=== PATIENT | female | born 1990 | race Hispanic/Latino ===

== ENCOUNTER 2018-07-20 21:57 | Emergency (ER) | payer MEDICAID ==
[2018-07-20] MEDS ORDERED: DEXAMETHASONE SOD PHOSPHATE 10MG/ML 1ML VIAL ONE (23:18)
[2018-07-20] MEDS ORDERED: DiphenhydrAMINE HCL 50 MG/ML VIAL ONE (23:18)
[2018-07-20] MEDS ORDERED: SODIUM CHLORIDE 0.9% 1000ML 1,000 ML IV ONE (23:18)
[2018-07-20] MEDS ORDERED: PROCHLORPERAZINE EDISYLATE 10 MG/2 ML VIAL ONE (23:19)
[2018-07-20 23:43] LABS: APPEARANCE,URINE Clear (CLEAR); BILIRUBIN,URINE Negative (NEGATIVE); COLOR,URINE Yellow (YELLOW); GLUCOSE, URINE (UA) Negative (NEGATIVE); KETONES,URINE Negative (NEGATIVE); LEUKOCYTE ESTERASE ,URINE Small (NEGATIVE); NITRATE,URINE Negative (NEGATIVE); OCCULT BLOOD,URINE Negative (NEGATIVE); PH,URINE 7.5 (5.0-8.0); PROTEIN,URINE Negative (NEGATIVE); UROBILINOGEN,URINE 0.2 mg/dL (0.2-1.0)
[2018-07-20 23:45] LABS: HCG,QUAL RESULT NEGATIVE (NEGATIVE)
[2018-07-20] MEDS ORDERED: CLINDAMYCIN 600 MG/D5% WATER 50 ML IV ONE (23:47)
[2018-07-20 23:52] LABS: BACTERIA,URINE None Seen /HPF (None Seen); RBC,URINE None Seen /HPF (0-1); SQUAMOUS EPITHELIAL CELL,UR Moderate /HPF (0-2); WBC,URINE None Seen /HPF (0-1)
[2018-07-20 23:59] LABS: CREATININE 0.9 mg/dL (0.5-1.5); POTASSIUM 3.7 mmol/L (3.5-5.1)
[2018-07-21 00:01] LABS: BASOPHILS % (AUTO) 0.3 % (0.0-5.0); EOSINOPHILS % (AUTO) 0.1 % (0.0-8.0); HEMATOCRIT 35.1 % (36-48); LYMPHOCYTES % (AUTO) 8.3 % (21.0-51.0); MEAN CORPUSCULAR HEMOGLOBIN 27.8 pg (27.0-33.0); MEAN CORPUSCULAR HGB CONC 32.6 g/dL (32.0-36.0); MEAN CORPUSCULAR VOLUME 85.3 fL (79-99); MONOCYTES % (AUTO) 7.4 % (3.0-13.0); NEUTROPHILS % (AUTO) 83.9 % (40.0-77.0); PLATELET COUNT (AUTO) 178 K/uL (130-400); RED BLOOD CELL COUNT(AUTO) 4.12 MIL/uL (4.00-5.50); RED CELL DISTRIBUTION WIDTH 14.4 % (11.0-15.5); WHITE BLOOD COUNT (AUTO) 14.7 K/uL (4.8-10.8)
[2018-07-21 00:04] LABS: ALBUMIN 3.8 g/dL (3.5-5.0); BILIRUBIN,TOTAL 0.6 mg/dL (0.2-1.0); TOTAL PROTEIN, SERUM 7.3 g/dL (6.0-8.3)
== END 2018-07-21 01:23 | disposition left against medical advice (07) ==
LOC: EDH 21:57
DX: N61.0 Mastitis without abscess (principal); N63.0 Unspecified lump in unspecified breast; M79.7 Fibromyalgia; Z85.528 Personal history of other malignant neoplasm of kidney; Z98.51 Tubal ligation status; Z98.890 Other specified postprocedural states
CPT/HCPCS: 36415 ×2; 76604; 80053; 81001; 81025; 83605; 85025; 87040 ×2; 96365; 96375; 99284; J0780; J1100; J1200; J3490; J7030

== ENCOUNTER 2018-07-22 20:07 | Inpatient (IN) | payer MEDICAID ==
[~2018-07-22] VITALS: Ht 167.6 cm; Wt 59.4 kg
[2018-07-22 20:37] LABS: BASOPHILS % (AUTO) 0.6 % (0.0-5.0); EOSINOPHILS % (AUTO) 0.4 % (0.0-8.0); HEMATOCRIT 35.5 % (36-48); LYMPHOCYTES % (AUTO) 25.4 % (21.0-51.0); MEAN CORPUSCULAR HEMOGLOBIN 27.8 pg (27.0-33.0); MEAN CORPUSCULAR HGB CONC 32.6 g/dL (32.0-36.0); MEAN CORPUSCULAR VOLUME 85.5 fL (79-99); MONOCYTES % (AUTO) 7.3 % (3.0-13.0); NEUTROPHILS % (AUTO) 66.3 % (40.0-77.0); PLATELET COUNT (AUTO) 213 K/uL (130-400); RED BLOOD CELL COUNT(AUTO) 4.15 MIL/uL (4.00-5.50); RED CELL DISTRIBUTION WIDTH 14.2 % (11.0-15.5); WHITE BLOOD COUNT (AUTO) 10.1 K/uL (4.8-10.8)
[2018-07-22] MEDS ORDERED: SODIUM CHLORIDE 0.9% 1000ML 1,000 ML IV ONE (20:43)
[2018-07-22] MEDS ORDERED: ONDANSETRON HCL 4 MG/2 ML VIAL ONE (20:43)
[2018-07-22 20:45] LABS: APPEARANCE,URINE Turbid (CLEAR); BILIRUBIN,URINE Negative (NEGATIVE); COLOR,URINE Yellow (YELLOW); GLUCOSE, URINE (UA) Negative (NEGATIVE); KETONES,URINE Trace mg/dL (NEGATIVE); LEUKOCYTE ESTERASE ,URINE Moderate (NEGATIVE); NITRATE,URINE Negative (NEGATIVE); OCCULT BLOOD,URINE Negative (NEGATIVE); PROTEIN,URINE POS 1+ (NEGATIVE)
[2018-07-22] MEDS ORDERED: MORPHINE SULFATE 4 MG/1ML SYG ONE ×3 (20:46→22:28)
[2018-07-22 20:47] LABS: HCG,QUAL RESULT NEGATIVE (NEGATIVE)
[2018-07-22 20:57] LABS: CREATININE 0.9 mg/dL (0.5-1.5); POTASSIUM 4.2 mmol/L (3.5-5.1)
[2018-07-22 21:02] LABS: ALBUMIN 3.8 g/dL (3.5-5.0); BILIRUBIN,TOTAL 0.3 mg/dL (0.2-1.0); TOTAL PROTEIN, SERUM 7.4 g/dL (6.0-8.3)
[2018-07-22 21:25] LABS: BACTERIA,URINE Many /HPF (None Seen); RBC,URINE None Seen /HPF (0-1); SQUAMOUS EPITHELIAL CELL,UR 30-50 /HPF (0-2); WBC,URINE 26-50 /HPF (0-1)
[2018-07-22 21:40] LABS: AMPHET/METH SCREEN,URINE NEGATIVE (NEGATIVE); BARBITURATE SCREEN, URINE NEGATIVE (NEGATIVE); BENZODIAZEPINES SCREEN,URINE NEGATIVE (NEGATIVE); CANNABINOID SCREEN,URINE POSITIVE (NEGATIVE); COCAINE SCREEN,URINE NEGATIVE (NEGATIVE); OPIATE SCREEN,URINE POSITIVE (NEGATIVE); PHENCYCLIDINE SCREEN,URINE NEGATIVE (NEGATIVE)
[2018-07-22] MEDS ORDERED: FENTANYL CITRATE PF 50 MCG/1 ML 2ML VIAL ONE (22:57)
[2018-07-22] MEDS ORDERED: SODIUM CHLORIDE 0.9% 1000ML 1,000 ML IV SCH (23:29)
[2018-07-22] MEDS ORDERED: LORAZEPAM 2 MG/ML 1 ML VIAL IVP PRN (23:30)
[2018-07-22] MEDS ORDERED: CEFTRIAXONE SODIUM 1 GM IVP SCH (23:30)
[2018-07-22] MEDS ORDERED: ONDANSETRON HCL 4 MG/2 ML VIAL IV PRN (23:30)
[2018-07-22] MEDS ORDERED: MORPHINE SULFATE 4 MG/1ML SYG IV PRN (23:30)
[2018-07-22] MEDS ORDERED: ACETAMINOPHEN 325 MG TAB PO PRN (23:30)
[2018-07-22] MEDS ORDERED: CEFTRIAXONE SODIUM 1 GM ONE (23:37)
[2018-07-23] VITALS (24 sets, daily range): BP systolic 110–135; BP diastolic 48–81
[2018-07-23] MEDS ORDERED: SODIUM CHLORIDE 0.9% 1000ML 1,000 ML IV ONE ×2 (00:47→10:51)
[2018-07-23] MEDS ORDERED: LORAZEPAM 2 MG/ML 1 ML VIAL ONE (04:00)
[2018-07-23] MEDS ORDERED: FAMOTIDINE/PF 20 MG/2 ML VIAL IV ONE (08:15)
[2018-07-23] MEDS: FAMOTIDINE/PF 20 MG/2 ML VIAL IV SCH ×2 (09:00→20:53)
[2018-07-23] MEDS ORDERED: ZOSYN 3.375GM+NS 50ML 50 ML IV SCH (10:30)
[2018-07-23] MEDS ORDERED: MORPHINE SULFATE 4 MG/1ML SYG ONE (10:51)
[2018-07-23] MEDS ORDERED: ZOSYN 3.375GM+NS 50ML 50 ML IV ONE (10:51)
[2018-07-23] MEDS ORDERED: SODIUM CHLORIDE 0.9% 50 ML IV ONE (10:52)
[2018-07-23] MEDS ORDERED: CLIN150C10 PO (10:53)
[2018-07-23] MEDS ORDERED: ACETAMINOPHEN 325 MG TAB ONE (12:23)
[2018-07-23] MEDS ORDERED: LACTATED RINGERS 1000ML 1,000 ML IV ONE (13:14)
[2018-07-23] MEDS ORDERED: PROPOFOL 10 MG/ML 20ML VIAL IV ONE (13:33)
[2018-07-23] MEDS ORDERED: LIDOCAINE PF 2% 5ML ABBOJECT ONE (13:33)
[2018-07-23] MEDS ORDERED: MIDAZOLAM HCL 1 MG/ML 2ML VIAL ONE (13:33)
[2018-07-23] MEDS ORDERED: ROCURONIUM 10MG/1ML SYR 10 MG/ML ML ONE ×2 (13:37→14:11)
[2018-07-23] MEDS ORDERED: DEXAMETHASONE SOD PHOSPHATE 4 MG/ML 1ML VIAL ONE (13:37)
[2018-07-23] MEDS ORDERED: ONDANSETRON HCL 4 MG/2 ML VIAL ONE (13:37)
[2018-07-23] MEDS ORDERED: NEOSTIGMINE 5MG/5ML SYR IV ONE (13:37)
[2018-07-23] MEDS ORDERED: GLYCOPYRROLATE 1 MG/5 ML SYRINGE ONE (13:37)
[2018-07-23] MEDS ORDERED: LIDOCAINE HCL 4% LTA SOL 4 ML VIAL ONE (13:37)
[2018-07-23] MEDS ORDERED: FENTANYL CITRATE PF 50 MCG/1 ML 2ML VIAL ONE ×3 (13:38→15:48)
[2018-07-23] MEDS ORDERED: CEFOXITIN SODIUM 1 GM VIAL ONE (14:00)
[2018-07-23] MEDS ORDERED: PHENYLEPHRINE HCL 10 MG/ML 1ML VIAL IV ONE (14:21)
[2018-07-23] MEDS: LACTATED RINGERS 1000ML 1,000 ML IV SCH ×2 (15:21→20:55)
[2018-07-23] MEDS ORDERED: MEPERIDINE-PF 25 MG/ML SYG ONE ×2 (15:29→16:04)
[2018-07-23] MEDS ORDERED: CEFOXITIN SODIUM 1 GM VIAL IVP SCH (15:30)
[2018-07-23] MEDS: KETOROLAC TROMETHAMINE 30MG/ML IV SCH ×2 (15:30→20:54)
--- NOTE | 2018-07-23 16:45 | NUR ---
REPORT RECEIVED FROM CORNELIO, RN (PACU). PATIENT S/P EXPLORATORY LAP SIGMOID RESECTION WITH PRIMARY ANASTOMOSIS BY DR. LUZ. DRESSING TO ABD DRY AND INTACT. 16 FR GUZ[address] IN [address]ACE. MEFOXIN 1GM GIVEN AT 1403. PATIENT STABLE AT THIS TIME.
[2018-07-23] MEDS: CEFOXITIN SODIUM 1 GM VIAL IVP SCH (20:53)
[2018-07-23] MEDS: MORPHINE SULFATE 4 MG/1ML SYG IV PRN (20:54)
[2018-07-23] MEDS: ZOSYN 3.375GM+NS 50ML 50 ML IV SCH (22:46)
[2018-07-24] VITALS: BP 124/50
[2018-07-24] MEDS: MORPHINE SULFATE 4 MG/1ML SYG IV PRN ×4 (00:16→11:04)
[2018-07-24] MEDS: KETOROLAC TROMETHAMINE 30MG/ML IV SCH (03:30)
[2018-07-24] MEDS: CEFOXITIN SODIUM 1 GM VIAL IVP SCH ×3 (03:57→15:04)
[2018-07-24 04:00] VITALS: BP 140/73
[2018-07-24 05:11] LABS: BASOPHILS % (AUTO) 0.2 % (0.0-5.0); LYMPHOCYTES % (AUTO) 5.3 % (21.0-51.0); MEAN CORPUSCULAR HEMOGLOBIN 27.5 pg (27.0-33.0); MEAN CORPUSCULAR HGB CONC 32.2 g/dL (32.0-36.0); MEAN CORPUSCULAR VOLUME 85.5 fL (79-99); MONOCYTES % (AUTO) 5.3 % (3.0-13.0); NEUTROPHILS % (AUTO) 89.2 % (40.0-77.0); PLATELET COUNT (AUTO) 210 K/uL (130-400); RED BLOOD CELL COUNT(AUTO) 3.86 MIL/uL (4.00-5.50); RED CELL DISTRIBUTION WIDTH 13.7 % (11.0-15.5); WHITE BLOOD COUNT (AUTO) 14.9 K/uL (4.8-10.8)
[2018-07-24 05:32] LABS: CREATININE 1.1 mg/dL (0.5-1.5); POTASSIUM 4.3 mmol/L (3.5-5.1)
[2018-07-24] MEDS: ZOSYN 3.375GM+NS 50ML 50 ML IV SCH ×3 (05:53→21:47)
[2018-07-24 07:49] VITALS: BP 121/73
[2018-07-24] MEDS: FAMOTIDINE/PF 20 MG/2 ML VIAL IV SCH ×2 (08:08→21:47)
[2018-07-24] MEDS: LACTATED RINGERS 1000ML 1,000 ML IV SCH ×2 (09:09→21:49)
[2018-07-24] MEDS ORDERED: TRAMADOL HCL 50 MG TABLET PO PRN (09:30)
[2018-07-24] MEDS: ENOXAPARIN SODIUM 40 MG/0.4 ML SYRINGE SQ SCH (10:08)
[2018-07-24] MEDS: ONDANSETRON HCL 4 MG/2 ML VIAL IVP PRN (10:54)
[2018-07-24 11:00] VITALS: BP 124/82
[2018-07-24] MEDS: HYDROMORPHONE PCA 10 MG/50 ML 50 ML IV SCH (14:42)
[2018-07-24 16:00] VITALS: BP 117/68
--- NOTE | 2018-07-24 18:02 | NUR ---
CONSUELO LESLIE, AAOX [address], IN [place], POST OP, STATES LIVES W FAMILY, NOT ALWAYS VERY MOBILE, STAYS IN BED A LOT, NO DME, NO HH NO PROVIDER, PLAN IS HOME Addendum: 07/24/18 at 1803 by DICK HAMPTON RN CM Amended: Links added.
[2018-07-24 19:59] VITALS: BP 119/60
[2018-07-25] VITALS: BP 114/82
[2018-07-25 04:00] VITALS: BP 106/61
[2018-07-25 04:25] LABS: BASOPHILS % (AUTO) 0.2 % (0.0-5.0); EOSINOPHILS % (AUTO) 0.3 % (0.0-8.0); HEMATOCRIT 32.3 % (36-48); LYMPHOCYTES % (AUTO) 6.9 % (21.0-51.0); MEAN CORPUSCULAR HEMOGLOBIN 28.4 pg (27.0-33.0); MEAN CORPUSCULAR HGB CONC 33.4 g/dL (32.0-36.0); MEAN CORPUSCULAR VOLUME 85.1 fL (79-99); MONOCYTES % (AUTO) 6.4 % (3.0-13.0); NEUTROPHILS % (AUTO) 86.2 % (40.0-77.0); PLATELET COUNT (AUTO) 233 K/uL (130-400); RED BLOOD CELL COUNT(AUTO) 3.79 MIL/uL (4.00-5.50); RED CELL DISTRIBUTION WIDTH 13.9 % (11.0-15.5); WHITE BLOOD COUNT (AUTO) 11.8 K/uL (4.8-10.8)
[2018-07-25 04:35] LABS: CREATININE 0.9 mg/dL (0.5-1.5); POTASSIUM 4.2 mmol/L (3.5-5.1)
[2018-07-25] MEDS: ZOSYN 3.375GM+NS 50ML 50 ML IV SCH ×3 (06:16→19:38)
[2018-07-25 07:50] VITALS: BP 138/61
[2018-07-25] MEDS: FAMOTIDINE/PF 20 MG/2 ML VIAL IV SCH ×2 (08:06→19:38)
[2018-07-25] MEDS: ENOXAPARIN SODIUM 40 MG/0.4 ML SYRINGE SQ SCH (08:14)
[2018-07-25] MEDS: ONDANSETRON HCL 4 MG/2 ML VIAL IVP PRN (08:34)
[2018-07-25] MEDS ORDERED: NALOXONE HCL 0.4 MG/1 ML ML IVP PRN (11:00)
[2018-07-25] MEDS: SODIUM CHLORIDE 0.9% 1000ML 1,000 ML IV SCH (11:15)
[2018-07-25] MEDS: LACTATED RINGERS 1000ML 1,000 ML IV SCH (11:43)
[2018-07-25 11:45] VITALS: BP 121/71
--- NOTE | 2018-07-25 15:30 | NUR ---
Dailey catheter removed as ordered. Balloon completely deflated, no resistance felt upon removal, tip noted to be intact. Pt tolerated with minimal discomfort. Stat lock removed w/ alcohol, liat care provided. Instructed pt to call when ready to void. Call light and bedside table within easy reach.
[2018-07-25 16:00] VITALS: BP 109/58
[2018-07-25] MEDS ORDERED: METRONIDAZOLE 500MG/100ML BAG 100 ML ONE (19:22)
[2018-07-25 20:00] VITALS: BP 132/69
[2018-07-25] MEDS: METRONIDAZOLE 500MG/100ML BAG 100 ML IV SCH (21:34)
[2018-07-26] VITALS (7 sets, daily range): BP systolic 107–127; BP diastolic 56–77
[2018-07-26 04:12] LABS: BASOPHILS % (AUTO) 0.2 % (0.0-5.0); EOSINOPHILS % (AUTO) 0.4 % (0.0-8.0); HEMATOCRIT 30.7 % (36-48); LYMPHOCYTES % (AUTO) 3.8 % (21.0-51.0); MEAN CORPUSCULAR HEMOGLOBIN 27.5 pg (27.0-33.0); MEAN CORPUSCULAR HGB CONC 32.6 g/dL (32.0-36.0); MEAN CORPUSCULAR VOLUME 84.4 fL (79-99); MONOCYTES % (AUTO) 6.3 % (3.0-13.0); NEUTROPHILS % (AUTO) 89.3 % (40.0-77.0); PLATELET COUNT (AUTO) 208 K/uL (130-400); RED BLOOD CELL COUNT(AUTO) 3.63 MIL/uL (4.00-5.50); RED CELL DISTRIBUTION WIDTH 13.8 % (11.0-15.5)
[2018-07-26 04:34] LABS: ALBUMIN 2.6 g/dL (3.5-5.0); BILIRUBIN,TOTAL 0.8 mg/dL (0.2-1.0); CREATININE 0.8 mg/dL (0.5-1.5); POTASSIUM 3.7 mmol/L (3.5-5.1); TOTAL PROTEIN, SERUM 6.5 g/dL (6.0-8.3)
[2018-07-26] MEDS: ZOSYN 3.375GM+NS 50ML 50 ML IV SCH ×3 (04:41→21:49)
[2018-07-26] MEDS: METRONIDAZOLE 500MG/100ML BAG 100 ML IV SCH ×3 (05:08→21:49)
--- NOTE | 2018-07-26 08:00 | NUR ---
DAILY ROUNDS BY DR LUZ; ABD DRESSING REMOVED BY , REPLACED WITH DRY 4X4 AND TAPE. NEW ORDERS ENTERED.
[2018-07-26] MEDS: FAMOTIDINE/PF 20 MG/2 ML VIAL IV SCH ×2 (08:13→21:49)
[2018-07-26] MEDS: ENOXAPARIN SODIUM 40 MG/0.4 ML SYRINGE SQ SCH (08:14)
[2018-07-26] MEDS: HYDROMORPHONE PCA 10 MG/50 ML 50 ML IV SCH (08:15)
[2018-07-26] MEDS: SIMETHICONE 80 MG TAB.CHEW PO PRN ×2 (10:48→16:57)
[2018-07-26] MEDS: SODIUM CHLORIDE 0.9% 1000ML 1,000 ML IV SCH (11:15)
[2018-07-26] MEDS: LACTATED RINGERS 1000ML 1,000 ML IV SCH (14:09)
[2018-07-26] MEDS: LIDOCAINE 5% TOPICAL PATCH TP SCH (14:23)
--- NOTE | 2018-07-26 17:30 | NUR ---
[facility]: Met with pt earlier to discuss Md order/recommendation for [facility]. She is agreeable and signed consent for KATRINA/PC. Clinical/referral faxed. Khushboo from [facility] here this afternoon to eval pt. She mentions that they are unable to accept pt at this time dt [facility] funding. Will discuss further elva Montero.
[2018-07-27] MEDS: LACTATED RINGERS 1000ML 1,000 ML IV SCH ×2 (02:11→20:48)
[2018-07-27 04:00] VITALS: BP 117/68
[2018-07-27] MEDS: ZOSYN 3.375GM+NS 50ML 50 ML IV SCH ×3 (04:48→20:48)
[2018-07-27 05:01] LABS: BASOPHILS % (AUTO) 0.3 % (0.0-5.0); EOSINOPHILS % (AUTO) 3.2 % (0.0-8.0); HEMATOCRIT 28.3 % (36-48); LYMPHOCYTES % (AUTO) 12.1 % (21.0-51.0); MEAN CORPUSCULAR HEMOGLOBIN 28.9 pg (27.0-33.0); MEAN CORPUSCULAR VOLUME 84.9 fL (79-99); MONOCYTES % (AUTO) 9.3 % (3.0-13.0); NEUTROPHILS % (AUTO) 75.1 % (40.0-77.0); PLATELET COUNT (AUTO) 238 K/uL (130-400); RED BLOOD CELL COUNT(AUTO) 3.33 MIL/uL (4.00-5.50); RED CELL DISTRIBUTION WIDTH 13.3 % (11.0-15.5); WHITE BLOOD COUNT (AUTO) 6.5 K/uL (4.8-10.8)
[2018-07-27 05:11] LABS: CREATININE 0.7 mg/dL (0.5-1.5); POTASSIUM 3.6 mmol/L (3.5-5.1)
[2018-07-27] MEDS ORDERED: POTASSIUM CHLORIDE 20 MEQ ERTAB PO ONE (05:24)
[2018-07-27] MEDS ORDERED: POTASSIUM CHLORIDE 10% ELIXIR 20 MEQ/15 ML UDCUP PO PRN (05:30)
[2018-07-27] MEDS ORDERED: POTASSIUM CHLORIDE 20 MEQ ERTAB PO PRN (05:30)
[2018-07-27] MEDS ORDERED: POTASSIUM CHLORIDE 20MEQ/100ML 100 ML IV PRN (05:30)
[2018-07-27] MEDS: METRONIDAZOLE 500MG/100ML BAG 100 ML IV SCH ×2 (05:32→13:31)
[2018-07-27 08:00] VITALS: BP 116/62
--- NOTE | 2018-07-27 08:30 | NUR ---
Notified Dr. Guan of pt's KUB results showing small bowel dilatation and possible ileus with early small bowel obstruction not excluded. She stated she would be in to see patient soon.
--- NOTE | 2018-07-27 10:00 | NUR ---
[facility]: informed Dr. Davalos this am regarding LT[facility] denying pt for admission. States that she will re-eval pt for poss dc home w PO ABX. Will continue to follow and wait for Md recommendations.
--- NOTE | 2018-07-27 10:00 | NUR ---
Dr. Guan in for daily rounds with pt. SESAR image/results reviewed by her. Rec'd orders for scheduled simethicone and one time dose of reglan 5 mg slow ivp. Orders entered and carried out.
[2018-07-27] MEDS: LIDOCAINE 5% TOPICAL PATCH TP SCH (11:09)
[2018-07-27] MEDS: ENOXAPARIN SODIUM 40 MG/0.4 ML SYRINGE SQ SCH (11:09)
[2018-07-27] MEDS: METOCLOPRAMIDE 10 MG/2 ML VIAL IVP SCH (11:10)
[2018-07-27] MEDS: FAMOTIDINE/PF 20 MG/2 ML VIAL IV SCH ×2 (11:11→20:48)
[2018-07-27] MEDS: SIMETHICONE 80 MG TAB.CHEW PO SCH ×2 (11:12→20:48)
[2018-07-27 12:00] VITALS: BP 102/61
[2018-07-27] MEDS: SIMETHICONE 80 MG TAB.CHEW PO PRN (13:31)
[2018-07-27] MEDS: ONDANSETRON HCL 4 MG/2 ML VIAL IVP PRN (13:32)
[2018-07-27 16:00] VITALS: BP 111/65
[2018-07-27 19:32] VITALS: BP 121/63
[2018-07-27 23:19] VITALS: BP 119/69
[2018-07-28] MEDS: METRONIDAZOLE 500MG/100ML BAG 100 ML IV SCH ×4 (01:40→20:00)
[2018-07-28] MEDS: LACTATED RINGERS 1000ML 1,000 ML IV SCH ×3 (02:01→20:01)
[2018-07-28] MEDS: ONDANSETRON HCL 4 MG/2 ML VIAL IVP PRN ×2 (02:18→10:51)
[2018-07-28 04:00] VITALS: BP 129/66
[2018-07-28] MEDS: ZOSYN 3.375GM+NS 50ML 50 ML IV SCH ×3 (04:50→20:00)
[2018-07-28] MEDS: SIMETHICONE 80 MG TAB.CHEW PO SCH ×3 (05:39→20:00)
[2018-07-28 08:25] VITALS: BP 107/65
[2018-07-28] MEDS: LIDOCAINE 5% TOPICAL PATCH TP SCH (09:19)
[2018-07-28] MEDS: FAMOTIDINE/PF 20 MG/2 ML VIAL IV SCH ×2 (09:19→19:59)
[2018-07-28] MEDS: ENOXAPARIN SODIUM 40 MG/0.4 ML SYRINGE SQ SCH (09:19)
[2018-07-28] MEDS: METOCLOPRAMIDE 10 MG/2 ML VIAL IVP SCH (10:15)
[2018-07-28] MEDS ORDERED: GLYCERIN ADULT SUPP.RECT RC PRN (11:00)
[2018-07-28 12:21] VITALS: BP 120/84
--- NOTE | 2018-07-28 14:45 | NUR ---
Dr. Freida howard. PIPE INSULATOR pumped discontinued. cbc tomorrow,
--- NOTE | 2018-07-28 15:31 | NUR ---
CM DC PLAN SPOKE TO VAL FARIAS THIS MORNING RE PLACEMENT; MOM AND PATIENT AT B/SIDE; DISCUSSED THERAPY, PAIN CONTORL, WOUND HEALING; MOM TO LOOK AT [facility], COME BACK, ADVISE PT; GOT ORDER TO SEND REFERRAL TO SNF OF PT/FAMILY CHOICE
--- NOTE | 2018-07-28 15:35 | NUR ---
ROW BOSS pumped discontinued
[2018-07-28 16:47] VITALS: BP 128/80
--- NOTE | 2018-07-28 17:00 | NUR ---
[facility]- REFERRAL SENT REFERRAL TO [facility], CALL FROM JOSE ANGEL , WILL REVIEW, SEE IN AM
--- NOTE | 2018-07-28 17:50 | NUR ---
RD Notification for Poor Intake, s/p colon resection Patient was NPO at time of screen;diet has been advanced to clear liquid. Patient reports hunger;RD rec to add Ensure Clear with meals as tolerated. Patient NPO and Liquid diet x6/7 days; When medically feasible, rec to advance to soft diet. Patient with no BM x7days; Patient s/p sigmoid colectomy. RD to continue to monitor diet advancement, nutritional labs, and BM. Please notify RD as nutritional concerns arise. Thank you.
[2018-07-28 20:00] VITALS: BP 126/77
[2018-07-28] MEDS: HYDROMORPHONE 1 MG/1 ML AMP IVP PRN (22:03)
[2018-07-28] MEDS ORDERED: DIPHENHYDRAMINE HCL 25 MG CAPSULE ONE (23:51)
[2018-07-29] VITALS: BP 122/63
[2018-07-29] MEDS ORDERED: DIPHENHYDRAMINE HCL 25 MG CAPSULE PO PRN
[2018-07-29] MEDS: HYDROMORPHONE 1 MG/1 ML AMP IVP PRN ×2 (01:22→23:29)
[2018-07-29 03:58] VITALS: BP 121/72
[2018-07-29 04:28] LABS: BASOPHILS % (AUTO) 0.5 % (0.0-5.0); EOSINOPHILS % (AUTO) 2.8 % (0.0-8.0); LYMPHOCYTES % (AUTO) 19.1 % (21.0-51.0); MEAN CORPUSCULAR HEMOGLOBIN 28.7 pg (27.0-33.0); MEAN CORPUSCULAR HGB CONC 34.2 g/dL (32.0-36.0); MEAN CORPUSCULAR VOLUME 83.9 fL (79-99); MONOCYTES % (AUTO) 9.2 % (3.0-13.0); NEUTROPHILS % (AUTO) 68.4 % (40.0-77.0); PLATELET COUNT (AUTO) 289 K/uL (130-400); RED BLOOD CELL COUNT(AUTO) 3.46 MIL/uL (4.00-5.50); RED CELL DISTRIBUTION WIDTH 13.7 % (11.0-15.5); WHITE BLOOD COUNT (AUTO) 5.8 K/uL (4.8-10.8)
[2018-07-29] MEDS: METRONIDAZOLE 500MG/100ML BAG 100 ML IV SCH ×3 (04:30→20:00)
[2018-07-29] MEDS: SIMETHICONE 80 MG TAB.CHEW PO SCH ×3 (04:31→20:01)
[2018-07-29] MEDS: ZOSYN 3.375GM+NS 50ML 50 ML IV SCH ×3 (04:31→20:00)
[2018-07-29 04:35] LABS: CREATININE 0.8 mg/dL (0.5-1.5); POTASSIUM 3.6 mmol/L (3.5-5.1)
[2018-07-29 08:12] VITALS: BP 125/73
[2018-07-29] MEDS: FAMOTIDINE/PF 20 MG/2 ML VIAL IV SCH ×2 (08:49→20:00)
[2018-07-29] MEDS: ENOXAPARIN SODIUM 40 MG/0.4 ML SYRINGE SQ SCH (08:49)
[2018-07-29] MEDS: LIDOCAINE 5% TOPICAL PATCH TP SCH (08:50)
[2018-07-29] MEDS: METOCLOPRAMIDE 10 MG/2 ML VIAL IVP SCH (10:15)
[2018-07-29] MEDS: LACTATED RINGERS 1000ML 1,000 ML IV SCH (11:16)
[2018-07-29 11:34] VITALS: BP 123/70
[2018-07-29] MEDS: ACETAMINOPHEN-CODEINE 300/30MG TAB PO PRN ×2 (12:28→20:00)
[2018-07-29 16:11] VITALS: BP 116/73
--- NOTE | 2018-07-29 17:24 | NUR ---
DC PLAN HOME WAS ADVISED BY BIANCA WHO CAME OT ASSESS PATINE THAT PATIENT WAS ADAMANT ABOUT GOING HOME. REFERRAL CANCELLED, SPOKE W PATIENT, WHO STATED SHE WAS POROGRESSING WELL AN DABLE TO DO MORE FOR HERSELF EACH DAY
[2018-07-29 20:00] VITALS: BP 123/67
[2018-07-30] VITALS (7 sets, daily range): BP systolic 113–122; BP diastolic 58–75
[2018-07-30] MEDS: ONDANSETRON HCL 4 MG/2 ML VIAL IVP PRN ×4 (02:03→20:25)
[2018-07-30 04:57] LABS: HEMATOCRIT 30.5 % (36-48); MEAN CORPUSCULAR HEMOGLOBIN 27.7 pg (27.0-33.0); PLATELET COUNT (AUTO) 271 K/uL (130-400); RED BLOOD CELL COUNT(AUTO) 3.63 MIL/uL (4.00-5.50); RED CELL DISTRIBUTION WIDTH 13.7 % (11.0-15.5)
[2018-07-30 05:00] LABS: CREATININE 0.8 mg/dL (0.5-1.5); POTASSIUM 3.7 mmol/L (3.5-5.1)
[2018-07-30] MEDS: ZOSYN 3.375GM+NS 50ML 50 ML IV SCH ×3 (05:09→23:07)
[2018-07-30] MEDS: METRONIDAZOLE 500MG/100ML BAG 100 ML IV SCH ×3 (05:09→20:27)
[2018-07-30] MEDS: SIMETHICONE 80 MG TAB.CHEW PO SCH ×3 (05:15→20:27)
[2018-07-30] MEDS: HYDROMORPHONE 1 MG/1 ML AMP IVP PRN ×2 (07:21→22:47)
[2018-07-30] MEDS: FAMOTIDINE/PF 20 MG/2 ML VIAL IV SCH ×2 (08:08→20:26)
[2018-07-30] MEDS: ENOXAPARIN SODIUM 40 MG/0.4 ML SYRINGE SQ SCH (08:09)
[2018-07-30] MEDS: LIDOCAINE 5% TOPICAL PATCH TP SCH (08:09)
[2018-07-30] MEDS: HYDROCODONE/ACETAMINOPHEN 5/325 MG TAB PO PRN ×2 (11:23→20:26)
[2018-07-31] MEDS: LACTATED RINGERS 1000ML 1,000 ML IV SCH (00:07)
[2018-07-31] MEDS: HYDROMORPHONE 1 MG/1 ML AMP IVP PRN (01:55)
[2018-07-31] MEDS: ONDANSETRON HCL 4 MG/2 ML VIAL IVP PRN (02:43)
[2018-07-31 03:27] VITALS: BP 115/60
[2018-07-31 04:32] LABS: BASOPHILS % (AUTO) 0.6 % (0.0-5.0); EOSINOPHILS % (AUTO) 2.9 % (0.0-8.0); HEMATOCRIT 29.8 % (36-48); LYMPHOCYTES % (AUTO) 24.3 % (21.0-51.0); MEAN CORPUSCULAR HEMOGLOBIN 28.4 pg (27.0-33.0); MEAN CORPUSCULAR HGB CONC 33.9 g/dL (32.0-36.0); MEAN CORPUSCULAR VOLUME 83.8 fL (79-99); MONOCYTES % (AUTO) 7.6 % (3.0-13.0); NEUTROPHILS % (AUTO) 64.6 % (40.0-77.0); NUCLEATED RED BLOOD CELLS 0.1 % (0.0-0.19); PLATELET COUNT (AUTO) 307 K/uL (130-400); RED BLOOD CELL COUNT(AUTO) 3.56 MIL/uL (4.00-5.50); RED CELL DISTRIBUTION WIDTH 13.6 % (11.0-15.5); WHITE BLOOD COUNT (AUTO) 4.7 K/uL (4.8-10.8)
[2018-07-31 04:49] LABS: CREATININE 0.8 mg/dL (0.5-1.5); POTASSIUM 3.7 mmol/L (3.5-5.1)
--- NOTE | 2018-07-31 06:35 | NUR ---
AM ASSESSMENT PATIENT RESTING WITH EYES CLOSED. NO RESPIRATORY DISTRESS NOTED. APPEARS COMFORTABLE. PATIENT REQUESTS FOR NURSE TO COME BACK AT A LATER TIME DUE TO BEING VERY SLEEPY.
[2018-07-31] MEDS: ZOSYN 3.375GM+NS 50ML 50 ML IV SCH ×2 (06:41→12:37)
[2018-07-31] MEDS: METRONIDAZOLE 500MG/100ML BAG 100 ML IV SCH ×2 (06:42→13:43)
[2018-07-31] MEDS: SIMETHICONE 80 MG TAB.CHEW PO SCH ×2 (06:43→13:43)
--- NOTE | 2018-07-31 08:00 | NUR ---
ROUNDS PATIENT CONTINUES ASLEEP. NO DISTRESS NOTED. ASKED IF SHE WAS GOING TO EAT BREAKFAST. SHE REPLIED THAT SHE WANTED TO SLEEP SOME MORE. Addendum: 07/31/18 at 1150 by AMARILYS WILLARD LVN LVN PATIENT REPORTS BEING IN PAIN BUT REFUSES PAIN MEDICATION BECAUSE SHE STATES THAT IT DOESN'T WORK.
[2018-07-31 08:13] VITALS: BP 111/62
[2018-07-31] MEDS: FAMOTIDINE/PF 20 MG/2 ML VIAL IV SCH (08:18)
[2018-07-31] MEDS: ENOXAPARIN SODIUM 40 MG/0.4 ML SYRINGE SQ SCH (08:19)
[2018-07-31] MEDS: LIDOCAINE 5% TOPICAL PATCH TP SCH (08:19)
--- NOTE | 2018-07-31 09:30 | NUR ---
HOSPITALIST DR. YANCEY IN TO SEE PATIENT. NEW ORDERS RECEIVED.
[2018-07-31 11:48] VITALS: BP 111/75
[2018-07-31] MEDS ORDERED: TYL3 PO (14:05)
[2018-07-31] MEDS ORDERED: METR500T PO (14:05)
[2018-07-31] MEDS: HYDROCODONE/ACETAMINOPHEN 5/325 MG TAB PO PRN (15:00)
--- NOTE | 2018-07-31 15:03 | NUR ---
RD Follow-Up Note Patient Post-Op Ex Lap x 7 days. Patient tolerating current soft diet; Rec to adv. to regular texture diet when medically feasible. Patient reports appetite has returned and desires to eat regular hot foods and also dislikes hospital food, although at 50% of lunch. RD offered Ensure for supplemental bill-protein nutrition; Patient refused. Patient LBM 07/28/18; when medically feasible, rec to add stool softener secondary no BM x 3 days. Patient monitored labs: Cl 100, BUN 6, Alb 2.6. RD to continue to monitor. Please notify RD as nutritional concerns arise. Thank you. Addendum: 07/31/18 at 1508 by MIGUEL ÁNGEL HOLDER RD RD Amended: Links added.
--- NOTE | 2018-07-31 16:30 | NUR ---
INSTRUCTIONS DISCHARGE INSTRUCTIONS GIVEN TO PATIENT USING TEACH BACK. F/U APPOINTMENTS MADE. NEW PRESCRIPTIONS PLACED IN PACKET ALONG WITH ALL PRINTED INSTRUCTIONS. IV HAS BEEN REMOVED WITH TIP INTACT. DIRECT PRESSURE APPLIED UNTIL BLEEDING CONTROLLED THEN SITE COVERED WITH GAUZE AND SECURED WITH TAPE. PENDING RIDE HOME.
--- NOTE | 2018-07-31 17:00 | NUR ---
TRANSPORT PATIENT TRANSPORTED TO PRIVATE VEHICLE BY AMADA HOWARD VIA WHEELCHAIR. FAMILY WITH ALL PERSONAL BELONGINGS. NO C/O PAIN, NO QUESTIONS OR CONCERNS VOICED AT THIS TIME.
== END 2018-07-31 17:15 | disposition home or self-care (01) | DRG 710 ==
LOC: EDH 20:07 → OBSVTOIN 20:08 → EDHIP 20:08 → 4BH 07-23 16:30
PROVIDERS: ADMIT Internal Medicine; ATTEND Internal Medicine
PROC: 0WJP0ZZ Inspection of Gastrointestinal Tract, Open Approach (ICD-10-PCS; principal; 2018-07-23 13:38)
PROC: 0DTN0ZZ Resection of Sigmoid Colon, Open Approach (ICD-10-PCS; 2018-07-23 13:38)
DX: A41.9 Sepsis, unspecified organism (principal); K56.2 Volvulus; Q43.3 Congenital malformations of intestinal fixation; F12.90 Cannabis use, unspecified, uncomplicated; N39.0 Urinary tract infection, site not specified; M79.7 Fibromyalgia; K56.7 Ileus, unspecified; K66.0 Peritoneal adhesions (postprocedural) (postinfection); Z90.5 Acquired absence of kidney; Z87.440 Personal history of urinary (tract) infections; Z85.528 Personal history of other malignant neoplasm of kidney; Z83.3 Family history of diabetes mellitus; Z82.5 Family history of asthma and other chronic lower respiratory diseases; Z82.49 Family history of ischemic heart disease and other diseases of the circulatory system; Z82.3 Family history of stroke; Z82.0 Family history of epilepsy and other diseases of the nervous system
CPT/HCPCS: 36415; 74018; 74176; 76604; 80048; 80053; 80305; 81001; 81025; 83605; 85025; 85027; 87040; 88307; 96365; 96375; 97039; A4218; A4344; G0378; J0694; J0696; J0780; J1100; J1170; J1200; J1650; J1885; J2001; J2060; J2175; J2250; J2270; J2370; J2405; J2543; J2704; J2710; J2765; J3010; J3490; J7030; J7120; Q0163

== ENCOUNTER 2018-08-21 16:53 | Emergency (ER) | payer MEDICAID ==
[~2018-08-21 16:53] MED LIST: METR500T PO; TYL3 PO
== END 2018-08-21 17:26 | disposition home or self-care (01) ==
LOC: EDH 16:53
DX: G89.18 Other acute postprocedural pain (principal); R10.9 Unspecified abdominal pain
CPT/HCPCS: 99281

== ENCOUNTER 2023-10-30 11:11 | Inpatient (IN) | payer BC, MEDICAID ==
[~2023-10-30] VITALS: Ht 167.6 cm; Wt 56.2 kg
[~2023-10-30 11:11] MED LIST changes: +GABA-529 PO; -METR500T PO; -TYL3 PO
[2023-10-30 12:32] LABS: BASOPHILS # (AUTO) 0.02 K/uL (0.00-0.20); BASOPHILS % (AUTO) 0.3 % (0.0-5.0); EOSINOPHILS # (AUTO) 0.05 K/uL (0.00-0.70); EOSINOPHILS % (AUTO) 0.8 % (0.0-8.0); HEMATOCRIT 38.8 % (36-48); IMMATURE GRANULOCYTE ABSOLUTE 0.01 K/uL (0-1); LYMPHOCYTES # (AUTO) 1.2 K/uL (1.0-4.8); LYMPHOCYTES % (AUTO) 18.1 % (21.0-51.0); MEAN CORPUSCULAR VOLUME 91.1 fL (79-99); MONOCYTES # (AUTO) 0.4 K/uL (0.1-1.0); MONOCYTES % (AUTO) 6.1 % (3.0-13.0); NEUTROPHILS # (AUTO) 4.8 K/uL (1.8-7.7); NEUTROPHILS % (AUTO) 74.5 % (40.0-77.0); PLATELET COUNT (AUTO) 182 K/uL (130-400); RED BLOOD CELL COUNT(AUTO) 4.26 MIL/uL (4.00-5.50); RED CELL DISTRIBUTION WIDTH 12.7 % (11.0-15.5); WHITE BLOOD COUNT (AUTO) 6.4 K/uL (4.8-10.8)
[2023-10-30 12:45] LABS: APPEARANCE,URINE CLEAR (CLEAR); BILIRUBIN,URINE NEGATIVE (NEGATIVE); COLOR,URINE COLORLESS (YELLOW); GLUCOSE, URINE (UA) NEGATIVE (NEGATIVE); KETONES,URINE NEGATIVE (NEGATIVE); LEUKOCYTE ESTERASE ,URINE NEGATIVE Leu/uL (NEGATIVE); NITRATE,URINE NEGATIVE (NEGATIVE); OCCULT BLOOD,URINE NEGATIVE (NEGATIVE); PH,URINE 6.5 (5.0-8.0); PROTEIN,URINE NEGATIVE (NEGATIVE); UROBILINOGEN,URINE 0.2 mg/dL (0.2-1.0)
[2023-10-30 12:46] LABS: CREATININE 1.1 mg/dL (0.5-1.0); POTASSIUM 4.1 mmol/L (3.5-5.1)
[2023-10-30 12:50] LABS: ALBUMIN 3.7 g/dL (3.5-5.0); BILIRUBIN,TOTAL 0.4 mg/dL (0.2-1.0); TOTAL PROTEIN, SERUM 6.8 g/dL (6.0-8.3)
[2023-10-30 12:55] LABS: ADD UA MICROSCOPIC NO
[2023-10-30 12:56] LABS: HCG,QUALITATIVE URINE NEGATIVE (NEGATIVE)
[2023-10-30] MEDS: ONDANSETRON 4MG INJ IVP ONE (15:05)
[2023-10-30] MEDS: MORPHINE 4 MG SYG IVP ONE (15:05)
[2023-10-30] MEDS ORDERED: ONDANSETRON 4MG INJ IVP PRN (15:30)
[2023-10-30] MEDS: 0.9%NACL 1000ML 1,000 ML IV SCH (15:39)
[2023-10-30] MEDS: CEFTRIAXONE 1G VIAL IVPB SCH (15:41)
[2023-10-30] MEDS: PANTOPRAZOLE 40 MG/VIAL IVP SCH (15:44)
[2023-10-30 15:45] LABS: INR <= 0.93 (0.85-1.15); PROTHROMBIN TIME 10.8 SEC (9.6-11.6)
[2023-10-30 15:46] LABS: PARTIAL THROMBOPLASTIN TIME 28.6 SEC (26.3-35.5)
[2023-10-30] MEDS ORDERED: MORPHINE 2 MG SYG IVP PRN (16:00)
[2023-10-30] MEDS: KETOROLAC 15MG/ML VIAL (15MG/ML) IV PRN (17:39)
[2023-10-30 20:13] VITALS: PULSE 63
[2023-10-30 21:03] VITALS: BP 16/73; RESP 18; O2SAT 100
[2023-10-30] MEDS ORDERED: METRONIDAZOLE 500MG/100ML BAG 100 ML IVPB SCH (22:00)
== END 2023-10-30 21:05 | disposition left against medical advice (07) | DRG 390 ==
LOC: EDH 11:11 → EDHIP 15:23 → 3CH 19:59
PROVIDERS: ADMIT Internal Medicine; ATTEND Internal Medicine
DX: K56.600 Partial intestinal obstruction, unspecified as to cause (principal); E86.0 Dehydration; K31.89 Other diseases of stomach and duodenum; Z85.528 Personal history of other malignant neoplasm of kidney; Z90.49 Acquired absence of other specified parts of digestive tract; Z90.5 Acquired absence of kidney
CPT/HCPCS: 36415; 74176; 80053; 81003; 81025; 84145; 85025; 85610; 85730; 86140; C9113; G0378; J0696; J1885; J2270; J2405; J7030

== ENCOUNTER 2023-11-04 20:28 | Emergency (ER) | payer BC ==
[~2023-11-04] VITALS: Ht 167.6 cm; Wt 55.3 kg
[2023-11-04] MEDS ORDERED: OMEP40CA21 PO (21:24)
[2023-11-04] MEDS ORDERED: DICY20TA2 PO (21:24)
[2023-11-04 21:40] VITALS: BP 140/85; PULSE 86; RESP 18; O2SAT 98
== END 2023-11-04 22:07 | disposition home or self-care (01) ==
LOC: EDH 20:28
DX: G89.29 Other chronic pain (principal); R10.9 Unspecified abdominal pain; K66.0 Peritoneal adhesions (postprocedural) (postinfection); Z79.899 Other long term (current) drug therapy; Z85.528 Personal history of other malignant neoplasm of kidney